=== PATIENT | female | born 1995 | race Caucasian/White ===

== ENCOUNTER 2025-02-22 08:52 | Emergency (ER) | payer OTHER ==
[~2025-02-22] VITALS: Ht 160 cm; Wt 77.0 kg
[2025-02-22 09:01] VITALS: BP 111/75; TEMP 36.9; O2SAT 100
[2025-02-22 09:05] VITALS: PULSE 74; RESP 16; O2SAT 98
[2025-02-22 09:45] LABS: BASOPHILS % 0.9 % (0.0-2.0); EOSINOPHILS % 4.0 % (0.0-5.0); HEMATOCRIT. 41.1 % (36.0-48.0); HEMOGLOBIN. 13.4 g/dL (12.0-16.0); LYMPHOCYTES % 37.6 % (20.0-50.0); MEAN PLATELET VOLUME 7.1 fl (7.4-10.4); MONOCYTES % 7.1 % (2.0-8.0); NEUTROPHILS % 50.4 % (40.0-76.0); PLATELET 304 x1000/uL (130-400); RED BLOOD CELL COUNT 4.59 mill/uL (4.2-5.4); RED CELL DISTRIBUTION WIDTH 13.1 % (11.6-14.6)
[2025-02-22 09:53] VITALS: TEMP 98.5
[2025-02-22] MEDS: ONDANSETRON HCL 4MG TABLET PO ONE (09:53)
[2025-02-22] MEDS: ACETAMINOPHEN 325MG TABLET PO ONE (09:53)
[2025-02-22 10:00] LABS: CREATININE 0.7 mg/dL (0.6-1.0); HCG SCREEN NEGATIVE; UREA NITROGEN BLOOD 10 mg/dL (9-23)
[2025-02-22 10:07] LABS: CLARITY URINE CLEAR (CLEAR); COLOR URINE YELLOW (YELLOW); GLUCOSE URINE NEGATIVE (NEGATIVE); KETONES URINE NEGATIVE (NEGATIVE); LEUKOCYTE ESTERASE URINE NEGATIVE (NEGATIVE); NITRITE URINE NEGATIVE (NEGATIVE); OCCULT BLOOD URINE TRACE (NEGATIVE); PH URINE 6.0 (4.5-8.0); PROTEIN URINE NEGATIVE (NEGATIVE); SPECIFIC GRAVITY URINE 1.015 (1.005-1.030); UROBILINOGEN URINE 0.2 E.U./dL (0.2-1.0)
[2025-02-22 10:37] LABS: BACTERIA URINE NONE SEEN; RBC URINE NONE SEEN /hpf (0-2); WBC URINE NONE SEEN /hpf (0-2)
[2025-02-22] MEDS: SUMATRIPTAN SUCCINATE 6MG/0.5ML VIAL SUBCUT ONE (12:40)
[2025-02-22] MEDS ORDERED: CLAR10 MT (13:25)
[2025-02-22] MEDS ORDERED: IMIT25 MT (13:25)
[2025-02-22] MEDS ORDERED: ONDA4TAB50 MT (13:25)
[2025-02-22] MEDS ORDERED: TOPUD MT (13:26)
== END 2025-02-22 14:16 | disposition home or self-care (01) ==
LOC: ER 08:52
DX: G43.909 Migraine, unspecified, not intractable, without status migrainosus (principal); J30.9 Allergic rhinitis, unspecified; Z98.890 Other specified postprocedural states; Z79.899 Other long term (current) drug therapy
CPT/HCPCS: 99285; 70450; 80048; 81003; 81025; 84703; 85025; 36415; 96372; Q0162; J3030